=== PATIENT | female | born 1980 | race Two or more races ===

== ENCOUNTER 2020-07-23 13:23 | Inpatient (IN) | payer SELFPAY ==
[~2020-07-23] VITALS: Ht 170.2 cm; Wt 78.6 kg
[2020-07-23] MEDS ORDERED: PANTOPRAZOLE 40 MG/10 ML VIAL INJ IV STA (13:43)
[2020-07-23] MEDS ORDERED: SODIUM CHLORIDE 0.9% 1,000 ML IVB ONE (13:45)
[2020-07-23] MEDS ORDERED: PROCHLORPERAZINE EDISYLATE 5 MG/ML 2ML VIAL IV ONE (13:45)
[2020-07-23] MEDS ORDERED: HYDROmorphone HCL 2 MG/ML VL IV ONE ×2 (13:45→20:15)
[2020-07-23 14:59] LABS: Urine Bacteria FEW /hpf (None Seen); Urine Blood TRACE /uL (Negative); Urine Mucus MODERATE (None Seen); Urine WBC 3 /hpf (0 - 5)
[2020-07-23 15:30] LABS: Eosinophils # (auto) 0 10 ^3/uL (0-0.8); Hemoglobin 15.1 g/dL (12.2-16.2); Lymphocytes # (auto) 1.8 10 ^3/uL (0.4-5.4); Monocytes # (auto) 0.3 10 ^3/uL (0-1.3); Neutrophils # (auto) 8.9 10 ^3/uL (1.6-8.6); Neutrophils % (auto) 80.8 % (37.0-80.0)
[2020-07-23 15:32] LABS: Basophils # (auto) 0 10 ^3/uL (0-0.2); Basophils % (auto) 0.4 % (0.0-2.0); Lymphocytes % (auto) 16.2 % (10.0-50.0); Mean Corpuscular Hemoglobin 28.1 pg (28.0-32.0); Mean Corpuscular Hgb Conc. 33.6 g/dL (32.0-36.0); Mean Corpuscular Volume 83.4 fL (80.0-100.0); Monocytes % (auto) 2.6 % (0.0-12.0); Nucleated Red Blood Cells % 0.1 %; Platelet Count (auto) 491 10^3/uL (140-450); Red Blood Cells 5.39 10^6/uL (4.0-5.20); Red Cell Distribution Width 13.1 % (11.8-14.3)
[2020-07-23 15:50] LABS: Albumin 4.7 g/dL (3.4-5.0); Calcium 9.4 mg/dL (8.5-10.1); Potassium 3.7 mmol/L (3.5-5.1)
[2020-07-23 15:53] LABS: BUN/Creatinine Ratio 35.1; Bilirubin, Total 0.8 mg/dL (0.2-1.0); Total Protein 9.4 g/dL (6.4-8.2)
[2020-07-23] MEDS ORDERED: NITROGLYCERIN 0.4 MG SL TAB SL PRN ×2 (19:45)
[2020-07-23] MEDS ORDERED: MORPHINE SULF INJ 2 MG/ML SYRINGE 1ML IV PRN ×2 (19:45)
[2020-07-23] MEDS ORDERED: ALUM & MAG HYDROX-SIMETH LIQ(MAALOX) 30 ML PO PRN (19:45)
[2020-07-23] MEDS ORDERED: DOCUSATE SOD 100 MG CAP PO PRN (19:45)
[2020-07-23] MEDS ORDERED: LACTATED RINGER'S 1,000 ML IV ONE (19:45)
[2020-07-23] MEDS ORDERED: cefTRIAXone 1GM/50ML D5W 50 ML IV ONE (19:45)
[2020-07-23] MEDS ORDERED: KETOROLAC TROMETH 30 MG/ML 1ML VIAL IV PRN (19:45)
[2020-07-23] MEDS ORDERED: ONDANSETRON HCL 4 MG/2 ML VIAL IV PRN (19:45)
[2020-07-23] MEDS ORDERED: SUCRALFATE 1 GM/10 ML ORAL SUSP PO ONE (19:45)
[2020-07-23] MEDS ORDERED: ONDANSETRON HCL 4 MG/2 ML VIAL IV ONE (20:15)
[2020-07-23] MEDS ORDERED: SOD CHL 0.9%/ KCL 20MEQ 1,000 ML IV ONE (20:45)
[2020-07-23] MEDS ORDERED: CLINDAMYCIN 600MG IV 50 ML IV ONE (20:45)
[2020-07-23 20:51] LABS: Amphetamine Screen, Urine NEGATIVE (NEGATIVE); Barbiturate Scree,Urine NEGATIVE (NEGATIVE); Benzodiazephine Screen, Urine POSITIVE (NEGATIVE); Cannabinoid Screen, Urine NEGATIVE (NEGATIVE); Cocaine Screen, Urine NEGATIVE (NEGATIVE); Opiate Scree,Urine NEGATIVE (NEGATIVE); Phencyclidine Screen, Urine NEGATIVE (NEGATIVE)
[2020-07-23 20:54] LABS: Cholesterol 165 mg/dL (< 200); HDL Cholesterol 64 mg/dL (40-59); LDL Cholesterol 96 mg/dL (< 100); Triglycerides 100 mg/dL (< 150)
[2020-07-23] MEDS: SUCRALFATE 1 GM/10 ML ORAL SUSP PO SCH (22:03)
[2020-07-23 22:15] VITALS: BP 148/85
[2020-07-23 22:30] VITALS: BP 148/85
[2020-07-23] MEDS: LORazepam 0.5 MG TAB PO PRN (22:55)
[2020-07-24] MEDS ORDERED: KETOROLAC TROMETH 30 MG/ML 1ML VIAL IV PRN (02:15)
[2020-07-24 02:25] LABS: Basophils # (auto) 0 10 ^3/uL (0-0.2); Basophils % (auto) 0.3 % (0.0-2.0); Eosinophils # (auto) 0 10 ^3/uL (0-0.8); Eosinophils % (auto) 0.1 % (0.0-7.0); Hematocrit 38.2 % (36.0-46.0); Hemoglobin 12.7 g/dL (12.2-16.2); Lymphocytes # (auto) 3.1 10 ^3/uL (0.4-5.4); Lymphocytes % (auto) 22.3 % (10.0-50.0); Mean Corpuscular Hgb Conc. 33.2 g/dL (32.0-36.0); Mean Corpuscular Volume 84.4 fL (80.0-100.0); Monocytes # (auto) 0.8 10 ^3/uL (0-1.3); Monocytes % (auto) 5.4 % (0.0-12.0); Neutrophils # (auto) 10.1 10 ^3/uL (1.6-8.6); Neutrophils % (auto) 71.9 % (37.0-80.0); Platelet Count (auto) 405 10^3/uL (140-450); Red Blood Cells 4.53 10^6/uL (4.0-5.20); White Blood Cell 14.1 10^3/uL (4.4-10.8)
[2020-07-24 02:45] LABS: Calcium 8.4 mg/dL (8.5-10.1); Potassium 3.3 mmol/L (3.5-5.1)
[2020-07-24 02:47] LABS: INR 1.06 (0.9-1.15)
[2020-07-24] MEDS: HYDROmorphone HCL 2 MG/ML VL IV PRN ×4 (02:47→22:50)
[2020-07-24 02:48] LABS: BUN/Creatinine Ratio 39.6; Magnesium 2.2 mg/dL (1.6-2.6)
[2020-07-24] MEDS: PROCHLORPERAZINE EDISYLATE 5 MG/ML 2ML VIAL IV PRN ×4 (02:48→22:50)
[2020-07-24 02:50] LABS: Bilirubin, Total 0.6 mg/dL (0.2-1.0); Phosphorus 2.6 mg/dL (2.5-4.90); Total Protein 7.5 g/dL (6.4-8.2)
[2020-07-24] MEDS ORDERED: TIZA4CAP PO (03:32)
[2020-07-24] MEDS ORDERED: PROP20TA73 PO (03:32)
[2020-07-24] MEDS ORDERED: CLONPOW23 PO (03:32)
[2020-07-24] MEDS ORDERED: PROM25TA5 PO (03:32)
[2020-07-24] MEDS ORDERED: PANT40TA2 PO (03:32)
[2020-07-24] MEDS ORDERED: LAMO100T44 PO (03:32)
[2020-07-24] MEDS ORDERED: OXYC325T14 PO (03:32)
[2020-07-24] MEDS ORDERED: ARIP1TAB5 PO (03:32)
[2020-07-24] MEDS ORDERED: SODIUM CHLORIDE 0.9% 1,000 ML IV SCH (05:00)
[2020-07-24 05:07] VITALS: BP 127/75
[2020-07-24] MEDS: CLINDAMYCIN 600MG IV 50 ML IV SCH ×2 (06:00→14:03)
[2020-07-24] MEDS: SUCRALFATE 1 GM/10 ML ORAL SUSP PO SCH ×4 (07:00→22:00)
[2020-07-24] MEDS: LORazepam 0.5 MG TAB PO PRN ×3 (08:00→23:30)
[2020-07-24 08:57] VITALS: BP 151/97
[2020-07-24] MEDS ORDERED: cefTRIAXone 1GM/50ML D5W 50 ML IV SCH (09:00)
[2020-07-24] MEDS ORDERED: PANTOPRAZOLE 40 MG/10 ML VIAL INJ IV SCH (10:00)
[2020-07-24] MEDS: ENOXAPARIN SOD 40 MG/0.4 ML SYRINGE SC SCH (10:15)
[2020-07-24] MEDS: HYOSCYAMINE SULF 0.125 MG ODT TAB PO PRN (12:06)
[2020-07-24 13:12] VITALS: BP 138/80
[2020-07-24 16:28] VITALS: BP 142/87
[2020-07-24] MEDS: POTASSIUM CHLORIDE 20 MEQ in D5W/LACTATED RINGERS 1,000 ML IV SCH (17:29)
[2020-07-24] MEDS: CALCIUM W/VIT D (600MG/400IU) TAB PO SCH (17:29)
[2020-07-24] MEDS: ACETAMINOPHEN 325 MG TAB PO PRN (21:41)
[2020-07-24 22:00] VITALS: BP 153/86
[2020-07-24] MEDS: MEROPENEM 1GM IVPB 100 ML IV SCH (22:00)
[2020-07-24] MEDS: PANTOPRAZOLE 40 MG TAB PO SCH (22:00)
[2020-07-25] MEDS: POTASSIUM CHLORIDE 20 MEQ in D5W/LACTATED RINGERS 1,000 ML IV SCH (02:36)
[2020-07-25 05:00] VITALS: BP 139/86
[2020-07-25] MEDS: HYDROmorphone HCL 2 MG/ML VL IV PRN ×3 (05:00→19:32)
[2020-07-25] MEDS: PROCHLORPERAZINE EDISYLATE 5 MG/ML 2ML VIAL IV PRN ×3 (05:00→19:31)
[2020-07-25] MEDS: LORazepam 0.5 MG TAB PO PRN (05:30)
[2020-07-25] MEDS: MEROPENEM 1GM IVPB 100 ML IV SCH ×3 (06:00→22:59)
[2020-07-25] MEDS: SUCRALFATE 1 GM/10 ML ORAL SUSP PO SCH ×4 (07:00→22:59)
[2020-07-25 07:30] LABS: Basophils # (auto) 0 10 ^3/uL (0-0.2); Basophils % (auto) 0.5 % (0.0-2.0); Eosinophils # (auto) 0 10 ^3/uL (0-0.8); Eosinophils % (auto) 0.5 % (0.0-7.0); Hematocrit 36.2 % (36.0-46.0); Hemoglobin 12.3 g/dL (12.2-16.2); Lymphocytes # (auto) 2.2 10 ^3/uL (0.4-5.4); Lymphocytes % (auto) 26.2 % (10.0-50.0); Mean Corpuscular Hemoglobin 28.1 pg (28.0-32.0); Mean Corpuscular Hgb Conc. 33.9 g/dL (32.0-36.0); Monocytes # (auto) 0.5 10 ^3/uL (0-1.3); Monocytes % (auto) 6.3 % (0.0-12.0); Neutrophils # (auto) 5.6 10 ^3/uL (1.6-8.6); Neutrophils % (auto) 66.5 % (37.0-80.0); Nucleated Red Blood Cells % 0.3 %; Platelet Count (auto) 341 10^3/uL (140-450); Red Blood Cells 4.36 10^6/uL (4.0-5.20); White Blood Cell 8.4 10^3/uL (4.4-10.8)
[2020-07-25 07:51] LABS: Albumin 3.6 g/dL (3.4-5.0); Calcium 8.4 mg/dL (8.5-10.1); Magnesium 1.9 mg/dL (1.6-2.6); Potassium 3.1 mmol/L (3.5-5.1)
[2020-07-25 07:56] LABS: BUN/Creatinine Ratio 18.6; Bilirubin, Total 0.8 mg/dL (0.2-1.0); Phosphorus 1.9 mg/dL (2.5-4.90); Total Protein 7.1 g/dL (6.4-8.2)
[2020-07-25] MEDS: CALCIUM W/VIT D (600MG/400IU) TAB PO SCH ×2 (08:00→18:31)
[2020-07-25 09:00] VITALS: BP 150/89
[2020-07-25] MEDS ORDERED: SODIUM CHLORIDE LOCK 10 ML ONE (09:22)
[2020-07-25] MEDS ORDERED: LIDOCAINE VISCOUS 2% 15ML UD ONE (09:22)
[2020-07-25] MEDS ORDERED: NALOXONE HCL 0.4 MG/ML VIAL ONE (09:22)
[2020-07-25] MEDS ORDERED: diphenhdrAMINE HCL 50 MG/1 ML VL ONE (09:23)
[2020-07-25] MEDS: PANTOPRAZOLE 40 MG TAB PO SCH ×2 (09:45→22:59)
[2020-07-25] MEDS: ENOXAPARIN SOD 40 MG/0.4 ML SYRINGE SC SCH (09:45)
[2020-07-25] MEDS: MIDAZOLAM HCL 5 MG/ML-1ML VIAL ONE ×2 (11:26→11:30)
[2020-07-25] MEDS: fentaNYL CITRATE 100 MCG/2 ML VL ONE ×2 (11:26→11:30)
[2020-07-25] MEDS ORDERED: POTASSIUM CHLORIDE 40 MEQ, LIDOCAINE 1% (LOCAL ANESTH.) 4 ML in SODIUM CHL 0.9% 250 ML IV ONE (12:30)
[2020-07-25 16:57] VITALS: BP 134/73
[2020-07-25] MEDS: ACETAMINOPHEN 325 MG TAB PO PRN (17:22)
[2020-07-25 19:41] VITALS: BP 132/96
[2020-07-25 23:14] VITALS: BP 132/96
[2020-07-26] MEDS: LORazepam 0.5 MG TAB PO PRN (01:31)
[2020-07-26] MEDS: HYDROmorphone HCL 2 MG/ML VL IV PRN ×2 (02:51→08:52)
[2020-07-26 04:42] VITALS: BP 124/76
[2020-07-26] MEDS: MEROPENEM 1GM IVPB 100 ML IV SCH (06:47)
[2020-07-26] MEDS: SUCRALFATE 1 GM/10 ML ORAL SUSP PO SCH ×2 (06:56→11:36)
[2020-07-26] MEDS ORDERED: SUCRALFATE 1 GM TAB PO ONE (07:00)
[2020-07-26] MEDS: HYOSCYAMINE SULF 0.125 MG ODT TAB PO PRN (08:50)
[2020-07-26] MEDS: PANTOPRAZOLE 40 MG TAB PO SCH (08:51)
[2020-07-26] MEDS: PROCHLORPERAZINE EDISYLATE 5 MG/ML 2ML VIAL IV PRN (08:51)
[2020-07-26] MEDS: ENOXAPARIN SOD 40 MG/0.4 ML SYRINGE SC SCH (08:51)
[2020-07-26] MEDS: CALCIUM W/VIT D (600MG/400IU) TAB PO SCH (08:51)
[2020-07-26 09:00] VITALS: BP 154/94
[2020-07-26 13:00] VITALS: BP 147/87
[2020-07-26] MEDS ORDERED: POTASSIUM CHL 20 Meq TABLET PO ONE (13:30)
[2020-07-26 13:41] VITALS: BP 145/87
[2020-07-26] MEDS ORDERED: PANT40T PO (14:00)
[2020-07-26] MEDS ORDERED: SUCR1TAB22 PO (14:00)
[2020-07-26] MEDS ORDERED: CHOL500033 PO (14:26)
== END 2020-07-26 15:00 | disposition home or self-care (01) | DRG 391 ==
LOC: ER 13:23 → OVERFLOW 20:00 → WEST WING 23:27
PROVIDERS: ADMIT Hospitalist; ATTEND Internal Medicine
PROC: 0DB68ZZ Excision of Stomach, Via Natural or Artificial Opening Endoscopic (ICD-10-PCS; principal; 2020-07-25 11:25)
DX: K52.9 Noninfective gastroenteritis and colitis, unspecified (principal); N17.0 Acute kidney failure with tubular necrosis; N39.0 Urinary tract infection, site not specified; R65.10 Systemic inflammatory response syndrome (SIRS) of non-infectious origin without acute organ dysfunction; E55.9 Vitamin D deficiency, unspecified; E86.0 Dehydration; E87.6 Hypokalemia; F12.90 Cannabis use, unspecified, uncomplicated; F31.9 Bipolar disorder, unspecified; G89.29 Other chronic pain; J45.909 Unspecified asthma, uncomplicated; K21.9 Gastro-esophageal reflux disease without esophagitis; K29.70 Gastritis, unspecified, without bleeding; K29.80 Duodenitis without bleeding; K31.7 Polyp of stomach and duodenum; M79.7 Fibromyalgia; Z80.9 Family history of malignant neoplasm, unspecified; Z83.3 Family history of diabetes mellitus; Z85.42 Personal history of malignant neoplasm of other parts of uterus; Z90.711 Acquired absence of uterus with remaining cervical stump; Z90.49 Acquired absence of other specified parts of digestive tract; Z90.710 Acquired absence of both cervix and uterus
CPT/HCPCS: 36415; 74176; 80053; 80061; 80307; 81001; 82306; 83036; 83690; 83735; 84100; 84443; 84484; 85025; 85610; 86850; 86900; 86901; 87040; 87086; 87426; 96361; 96365; 96375; 96376; C9113; G0378; J0696; J1885; J2001; J2185; J2250; J2405; J3490